=== PATIENT | male | born 1950 | race Caucasian/White ===

== ENCOUNTER 2024-06-12 12:06 | Outpatient (CLI) | payer MEDICARE, SELFPAY ==
[2024-06-12 18:45] LABS: Basophils % 0.5 % (0.1-2.0); Eosinophils # 0.3 K/mm3 (0.0-0.4); Eosinophils % 3.4 % (0.1-12.0); Hemoglobin 16.3 g/dL (14.1-18.0); Lymphocytes # 1.7 K/mm3 (0.7-4.5); Lymphocytes % 21.9 % (10-50); Mean Corpuscular HGB Conc 31.3 g/dL (31.8-35.4); Mean Corpuscular Hemoglobin 29.2 pg (27.0-31.2); Mean Corpuscular Volume 93.3 fl (80-94); Mean Platelet Volume 9.7 fl (7.4-10.4); Monocytes # 0.5 K/mm3 (0.1-1.0); Monocytes % 6.8 % (1.7-9.3); Neutrophils # 5.2 K/mm3 (1.8-7.8); Neutrophils % 67.3 % (37.0-80.0); Platelet Count 231 K/mm3 (142-424); Red Blood Count 5.57 M/mm3 (4.60-6.20); Red Cell Distribution Width 15.8 % (11.5-17.5); White Blood Count 7.7 K/mm3 (4.8-10.8)
[2024-06-12 19:21] LABS: Alanine Aminotransferase 28 U/L (12-78); Albumin Level 3.7 g/dl (3.5-5.0); Albumin/Globulin Ratio 1.4 (1.1-1.8); Alkaline Phosphatase 81 U/L (38-126); Anion Gap 12.8 mEq/L (5-15); Aspartate Amino Transferase 26 U/L (17-59); Bilirubin,Total 0.5 mg/dl (0.2-1.3); Blood Urea Nitrogen 40 mg/dl (9-20); Calcium 8.8 mg/dl (8.4-10.2); Carbon Dioxide 21 mmol/L (22.0-30.0); Chloride 113 mmol/L (98-107); Chol/HDL Ratio 8.8 (1-3.5); Cholesterol 221 mg/dl (140-200); Estimated Glomerular Filt Rate 33 ml/min (>60); GFR (African American) 40 ML/MIN (>60); Globulin 2.7 g/dL (1.3-3.2); Glucose 227 mg/dl (74-100); HDL Cholesterol 25 mg/dl (40-60); Potassium 5.8 mmoL/L (3.5-5.1); Sodium 141 mmol/L (136-145); Total Protein,Serum 6.4 g/dl (6.3-8.2); Triglycerides 389 mg/dl (30-150); VLDL Cholesterol 78 mg/dL (0-40)
[2024-06-12 19:32] LABS: Direct LDL Cholesterol 146.47 mg/dL (100-129)
[2024-06-12 19:51] LABS: Prostate Specific Ag Screen 1.1 ng/ml (0.0-4.0); Thyroid Stimulating Hormone 1.17 uIU/mL (0.465-4.68)
[2024-06-12 21:37] LABS: Hemoglobin A1C 7.7 % (4.0-6.0)
== END 2024-06-12 23:59 | disposition home or self-care (01) ==
LOC: LAB.DROPOF 06-14 17:38
PROVIDERS: PCP Family Medicine; Visit Provider Family Medicine
DX: E11.9 Type 2 diabetes mellitus without complications (principal); Z12.5 Encounter for screening for malignant neoplasm of prostate
CPT/HCPCS: 80053; 80061; 83036; 84443; 85025; G0103

== ENCOUNTER 2024-07-02 09:31 | Outpatient (CLI) | payer MEDICARE, SELFPAY ==
--- NOTE | 2024-07-02 09:32 | US_ITS ---
FINAL REPORT CLINICAL HISTORY: claudication, smoker, DM, HTN, HLD COMPARISON: None FINDINGS: ANKLE-BRACHIAL PRESSURE INDICES Pressure indices are as follows: RIGHT LOWER EXTREMITY: Ankle-brachial pressure index: 1.2 Comments: Normal LEFT LOWER EXTREMITY: Ankle-brachial pressure index: 1.2 Comments: Normal IMPRESSION: No evidence of significant obstructive peripheral vascular disease of the lower extremities Reviewed, Interpreted and Dictated by Bahman Mcelroy III, MD Transcribed by Tracy Uribe Authenticated and [facility]
--- NOTE | 2024-07-02 09:32 | CT_ITS ---
FINAL REPORT TECHNIQUE: Axial CT images of the chest were obtained without contrast. Low-dose protocol was utilized. This study was performed with techniques to keep radiation doses as low as reasonably achievable (ALARA). Individualized dose reduction techniques using automated exposure control or adjustment of mA and/or kV according to the patient's size were employed. CLINICAL HISTORY: lung cancer screening CURRENT SMOKER 1 PPD X 60 YEARS COMPARISON: None FINDINGS: CT CHEST WITHOUT, LOW DOSE SCREENING CT Di Vol: 2.90 mGy DLP: 114.38 mGy*cm There is no axillary, mediastinal, or hilar adenopathy. The heart size is normal. There are mild coronary artery calcifications. There is no pleural or pericardial effusion. Mild emphysema and mild scarring are noted. The lung windows show no suspicious mass or nodule. Limited images of the upper abdomen demonstrate no acute findings. IMPRESSION: No suspicious mass or nodule. LR Category 1: 12 month follow-up low-dose chest CT is recommended per Fleischner criteria. Reviewed, Interpreted and Dictated by Bahman Mcelroy III, MD Transcribed by rTacy Uribe Authenticated and [facility]
--- NOTE | 2024-07-02 09:32 | XR_ITS ---
FINAL REPORT CLINICAL HISTORY: low back pain COMPARISON: None FINDINGS: 3 views of the lumbar spine were obtained. There is no evidence of fracture. There is no malalignment. The vertebrae are normal in height. There is moderate degenerative change. Multilevel osteophytes and facet arthropathy are noted. There are vascular calcifications. IMPRESSION: Degenerative changes without acute bony abnormality. Reviewed, Interpreted and Dictated by Bahman Mcelroy III, MD Transcribed by Tracy Uribe Authenticated and [facility]
== END 2024-07-02 23:59 | disposition home or self-care (01) ==
LOC: RAD 09:32
PROVIDERS: PCP Family Medicine; Visit Provider Family Medicine
DX: M54.50 Low back pain, unspecified (principal); F17.210 Nicotine dependence, cigarettes, uncomplicated; F17.200 Nicotine dependence, unspecified, uncomplicated; I73.9 Peripheral vascular disease, unspecified
CPT/HCPCS: 71271; 72100; 93923

== ENCOUNTER 2024-07-21 11:18 | Outpatient (CLI) | payer MEDICARE, SELFPAY ==
[2024-07-23 11:15] LABS: Albumin/Creatinine Ratio 2345 mg/g creat (0-29)
== END 2024-07-21 23:59 | disposition home or self-care (01) ==
LOC: LAB.DROPOF 07-22 10:08
PROVIDERS: PCP Family Medicine; Visit Provider Family Medicine
DX: I10 Essential (primary) hypertension (principal)
CPT/HCPCS: 82043; 82570

== ENCOUNTER 2024-08-27 13:42 | Outpatient (CLI) | payer MEDICARE, SELFPAY ==
[2024-08-27 18:46] LABS: Alanine Aminotransferase 23 U/L (12-78); Albumin Level 3.6 g/dl (3.5-5.0); Albumin/Globulin Ratio 1.8 (1.1-1.8); Alkaline Phosphatase 90 U/L (38-126); Anion Gap 12.4 mEq/L (5-15); Aspartate Amino Transferase 18 U/L (17-59); Bilirubin,Total 0.5 mg/dl (0.2-1.3); Blood Urea Nitrogen 29 mg/dl (9-20); Calcium 8.7 mg/dl (8.4-10.2); Carbon Dioxide 24 mmol/L (22.0-30.0); Chloride 107 mmol/L (98-107); Cholesterol 115 mg/dl (140-200); Estimated Glomerular Filt Rate 37 ml/min (>60); GFR (African American) 45 ML/MIN (>60); Glucose 316 mg/dl (74-100); Potassium 4.4 mmoL/L (3.5-5.1); Sodium 139 mmol/L (136-145); Total Protein,Serum 5.6 g/dl (6.3-8.2); Triglycerides 253 mg/dl (30-150); VLDL Cholesterol 51 mg/dL (0-40)
[2024-08-27 18:57] LABS: Direct LDL Cholesterol 71.53 mg/dL (100-129)
[2024-08-27 19:44] LABS: Chol/HDL Ratio 4.3 (1-3.5); HDL Cholesterol 27 mg/dl (40-60)
[2024-08-27 20:12] LABS: Hemoglobin A1C 8.5 % (4.0-6.0)
[2024-08-27 20:58] LABS: HIV (1&2) Antibody Rapid NONREACTIVE (NONREACTIVE)
[2024-08-29 09:15] LABS: HCV Ab Non Reactive (Non Reactive)
== END 2024-08-27 23:59 | disposition home or self-care (01) ==
LOC: LAB.DROPOF 08-28 13:42
PROVIDERS: PCP Family Medicine; Visit Provider Family Medicine
DX: I10 Essential (primary) hypertension (principal); E11.9 Type 2 diabetes mellitus without complications; Z11.4 Encounter for screening for human immunodeficiency virus [HIV]; Z11.59 Encounter for screening for other viral diseases; Z91.89 Other specified personal risk factors, not elsewhere classified
CPT/HCPCS: 80053; 80061; 83036; 86803; 87389

== ENCOUNTER 2024-10-13 11:05 | Outpatient (CLI) | payer MEDICARE, SELFPAY ==
[2024-10-13 18:19] LABS: Hemoglobin A1C 8.3 % (4.0-6.0)
[2024-10-13 18:35] LABS: Alanine Aminotransferase 20 U/L (12-78); Albumin Level 3.7 g/dl (3.5-5.0); Albumin/Globulin Ratio 1.7 (1.1-1.8); Alkaline Phosphatase 89 U/L (38-126); Anion Gap 12.1 mEq/L (5-15); Aspartate Amino Transferase 21 U/L (17-59); Bilirubin,Total 0.3 mg/dl (0.2-1.3); Blood Urea Nitrogen 34 mg/dl (9-20); Calcium 8.9 mg/dl (8.4-10.2); Carbon Dioxide 26 mmol/L (22.0-30.0); Chloride 109 mmol/L (98-107); Estimated Glomerular Filt Rate 35 ml/min (>60); GFR (African American) 42 ML/MIN (>60); Globulin 2.2 g/dL (1.3-3.2); Glucose 189 mg/dl (74-100); Potassium 5.1 mmoL/L (3.5-5.1); Sodium 142 mmol/L (136-145); Total Protein,Serum 5.9 g/dl (6.3-8.2)
[2024-10-13 18:50] LABS: Creatinine,Urine Random 72 mg/dL (Not Estab.)
[2024-10-13 22:48] LABS: Microalbumin/Creatinine Ratio 1876.6
== END 2024-10-13 23:59 | disposition home or self-care (01) ==
LOC: LAB.DROPOF 10-14 12:40
PROVIDERS: PCP Family Medicine; Visit Provider Family Medicine
DX: E11.9 Type 2 diabetes mellitus without complications (principal)
CPT/HCPCS: 80053; 82043; 82570; 83036